=== PATIENT | male | born 1960 | race Caucasian/White ===

== ENCOUNTER 2018-10-22 20:08 | Inpatient (IN) | payer MEDICAID ==
[~2018-10-22] VITALS: Ht 172.7 cm; Wt 86.7 kg
--- NOTE | 2018-10-22 20:08 | NUR ---
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
--- NOTE | 2018-10-22 20:23 | NUR ---
BLOOD COLLECTED FROM PIV
[2018-10-22 20:39] LABS: BASOPHILS # (AUTO) 0.1 /CMM (0.0-0.2); BASOPHILS % (AUTO) 1.2 % (0.0-2.0); EOSINOPHILS % (AUTO) 0.9 % (0.0-6.0); HEMATOCRIT 39 % (39-51); HEMOGLOBIN 13.2 g/dL (13.5-17.5); LYMPHOCYTES # (AUTO) 2.2 /CMM (0.8-4.8); MEAN CORPUSCULAR HGB CONC 34 g/dl (31.0-36.0); MEAN CORPUSCULAR VOLUME 91 fL (80-96); MONOCYTES # (AUTO) 0.4 /CMM (0.1-1.30); MONOCYTES % (AUTO) 7.1 % (2.0-12.0); NEUTROPHILS # (AUTO) 3.5 /CMM (1.8-8.9); NEUTROPHILS % (AUTO) 55.8 % (43.0-81.0); PLATELET COUNT (AUTO) 348 /CMM (150-450); RED BLOOD CELL COUNT(AUTO) 4.32 MIL/uL (4.5-6.0); WHITE BLOOD COUNT (AUTO) 6.2 K/uL (4.3-11.0)
[2018-10-22 20:49] LABS: CALCIUM, SERUM 8.8 mg/dL (8.5-10.1); CREATININE 1.5 mg/dL (0.6-1.3); POTASSIUM 4.6 mmol/L (3.5-5.1)
--- NOTE | 2018-10-22 21:44 | NUR ---
Juan stoll in [facility] - 10/22/18 at 2145 by YEN BED [phone] MADHU WORLEY.
--- NOTE | 2018-10-22 21:58 | NUR ---
REPORT GIVEN TO LAMBERTO BROWN FOR JUAN J
[2018-10-22] MEDS ORDERED: MAGNESIUM HYDROXIDE 30 ML UDC PO PRN (22:00)
[2018-10-22] MEDS ORDERED: ACETAMINOPHEN 325 MG TABLET PO PRN (22:00)
[2018-10-22] MEDS ORDERED: MAG HYDROX/AL HYDROX/SIMETH 30 ML UDC PO PRN (22:00)
[2018-10-22] MEDS ORDERED: Z GUARD REMEDY 2 OZ OINT TP PRN (22:00)
[2018-10-22] MEDS ORDERED: ONDANSETRON HCL/PF 4 MG/2 ML VIAL IVP PRN (22:00)
[2018-10-22] MEDS ORDERED: IV NS 0.9% 1,000 ML IV SCH (22:00)
[2018-10-22] MEDS ORDERED: ZOLPIDEM TARTRATE 5 MG TABLET PO PRN (22:00)
[2018-10-22] MEDS ORDERED: HYDROCODONE/APAP 5/325MG 1 EACH TABLET PO PRN (22:00)
[2018-10-22 22:30] VITALS: BP 121/77
--- NOTE | 2018-10-22 22:30 | NUR ---
PT TRANSFERRED TO 3W/TELE VIA ACLS PROTOCOL
--- NOTE | 2018-10-22 22:35 | NUR ---
MODEL AND PATTERN SUPERVISORSSN/SSBN ASSISTANT NAVIGATOR NOTES Patient came to unit via gurney, alert, oriented x 3, able to make needs known. Breathing even and unlabored. Not in any distress. No complaints of pain as of this time. Tele monitor in place, sinus marta 51. IV access on LAC g#18 intact and patent. Patient denies smoking and recreational drug use, but drinks occasionally. Oriented to call bruce, placed within easy reach. Bed in low, locked position. Will continue to monitor accordingly
[2018-10-22] MEDS ORDERED: ARIP5TAB10 PO (23:50)
[2018-10-22] MEDS ORDERED: CLOP75TA15 PO (23:50)
[2018-10-22] MEDS ORDERED: ALPR2TAB2 PO (23:50)
[2018-10-22] MEDS ORDERED: HYDR-4354 PO (23:51)
[2018-10-23] VITALS: BP 131/85
--- NOTE | 2018-10-23 02:55 | NUR ---
MANIPULATOR OPERATOR NOTES Current tele reading- SB 40 as per technical support intern. Checked up on patient, patient asymptomatic. Patient able to answer questions and denies any pain or discomfort.
[2018-10-23 04:00] VITALS: BP 97/50
--- NOTE | 2018-10-23 06:35 | NUR ---
SOUP MIXER NOTES Called family member to follow up on patient's list of medications. No answer. Left a message
--- NOTE | 2018-10-23 06:40 | NUR ---
PREPRINT ANALYST CLOSING NOTES Patient still sleeping in bed, easily arousable. Breathing even and unlabored. Not in any distress. Peripheral IV infusing at 75mL/hr. Tele monitor in place, patient has been on sinus marta 48-51 but patient is asymptomatic- still able to communicate. No complaints as of this time. All needs attended to. Safety measures in place. Will endorse JUAN J to oncoming RN
[2018-10-23 06:58] LABS: EOSINOPHILS % (AUTO) 1.9 % (0.0-6.0); HEMATOCRIT 36 % (39-51); HEMOGLOBIN 12.4 g/dL (13.5-17.5); LYMPHOCYTES # (AUTO) 1.4 /CMM (0.8-4.8); MEAN CORPUSCULAR HGB CONC 35 g/dl (31.0-36.0); MEAN CORPUSCULAR VOLUME 89 fL (80-96); MONOCYTES # (AUTO) 0.4 /CMM (0.1-1.30); MONOCYTES % (AUTO) 7.9 % (2.0-12.0); NEUTROPHILS % (AUTO) 61.2 % (43.0-81.0); PLATELET COUNT (AUTO) 283 /CMM (150-450); RED BLOOD CELL COUNT(AUTO) 4.03 MIL/uL (4.5-6.0); WHITE BLOOD COUNT (AUTO) 4.9 K/uL (4.3-11.0)
[2018-10-23 07:00] LABS: CALCIUM, SERUM 8.5 mg/dL (8.5-10.1); CREATININE 1.2 mg/dL (0.6-1.3); PHOSPHORUS 4.4 mg/dL (2.5-4.9)
[2018-10-23 07:55] VITALS: BP 113/1
[2018-10-23 08:00] VITALS: BP 113/81
--- NOTE | 2018-10-23 08:00 | NUR ---
RN notes received patient in the bed sleeping. Patient Tele on SR-52, no acute respiratory distress, v/s stable. patient apous when called name or touched. Infusing NS at 75 ml/hr on left ac area intact. Call light within to reach, safety precaution maintained all the time.
[2018-10-23] MEDS ORDERED: IV NS 0.9% 1,000 ML IV PRN (08:34)
--- NOTE | 2018-10-23 08:43 | NUR ---
BUFFER NICKEL/MED RECON PATIENT UNABLE TO PROVIDE COMPLETE INFO RE: HIS HOME MEDICATION. CALLED RENAE WITH NO ANSWER AND UNABLE TO LEAVE A MSG.
--- NOTE | 2018-10-23 09:40 | NUR ---
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
--- NOTE | 2018-10-23 10:38 | NUR ---
rn notes Administered narco 5/325 mg po prn for left upper chest pain 5/10 per patient request, v/s taken bp-117/73, p-61, continued monitoring. also patient seen by Dr. Oleary. patient notes he wanted to go home. call light within to reach.
[2018-10-23 10:46] LABS: APPEARANCE,URINE CLEAR (CLEAR); BILIRUBIN,URINE NEGATIVE (NEGATIVE); BLOOD, URINE NEGATIVE Ery/uL (NEGATIVE); COLOR,URINE YELLOW (YELLOW); KETONES,URINE NEGATIVE (NEGATIVE); LEUKOCYTE ESTERASE ,URINE NEGATIVE (NEGATIVE); NITRITE, URINE NEGATIVE (NEGATIVE); PH,URINE 5.5 (5.0-8.0); PROTEIN,URINE NEGATIVE (NEGATIVE); UGLUCOSE NEGATIVE (NEGATIVE); UROBILINOGEN,URINE 0.2 EU/dL (0.2)
[2018-10-23] MEDS ORDERED: NITR0.4T48 SL (11:55)
[2018-10-23 12:00] VITALS: BP 116/73
[2018-10-23] MEDS ORDERED: HYDROCODONE/APAP 10/325MG 1 EA TABLET PO PRN (12:00)
[2018-10-23] MEDS ORDERED: ARIPIPRAZOLE 5 MG TABLET PO SCH (12:00)
[2018-10-23] MEDS ORDERED: CLOPIDOGREL BISULFATE 75 MG TABLET PO SCH (12:00)
--- NOTE | 2018-10-23 12:30 | NUR ---
RN notes Administered Xanax 2 mg po prn for anxiety per patient request, v/s taken bp 120/76, p- 71, continued monitoring.
[2018-10-23] MEDS ORDERED: ALPRAZOLAM 1 MG TABLET PO PRN (13:00)
--- NOTE | 2018-10-23 13:30 | NUR ---
rn notes patient going to d[facility] back [facility], case management aware of.
--- NOTE | 2018-10-23 13:36 | NUR ---
RN notes Per mother helper Dr. Asher d/c tele to [facility].
--- NOTE | 2018-10-23 15:50 | NUR ---
Discharge Notes Patient discharge back to [facility]. Patient stable, v/s stable, refused pain at this time. Med reconciliation, and discharge order reviewed and explained to patient. Patient verbalized understanding. Belonging with the patient. Patient noted he has medication at home, and does not need new prescription. Patient will follow primary Md. and take medication. Patient refused to take a bus to [facility]. 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, phone # [phone].
== END 2018-10-23 15:10 | disposition home or self-care (01) | DRG 198 ==
LOC: EDSEX 20:12 → EDBD 20:12 → ER 20:12 → TELE 21:51 → MED 10-23 13:39
PROVIDERS: ADMIT Family Medicine
DX: I25.119 Atherosclerotic heart disease of native coronary artery with unspecified angina pectoris (principal); N17.0 Acute kidney failure with tubular necrosis; Z95.1 Presence of aortocoronary bypass graft; F39 Unspecified mood [affective] disorder; D63.8 Anemia in other chronic diseases classified elsewhere; I12.9 Hypertensive chronic kidney disease with stage 1 through stage 4 chronic kidney disease, or unspecified chronic kidney disease; N18.9 Chronic kidney disease, unspecified
CPT/HCPCS: 36415; 71045-TC; 80048-TC; 80061-TC; 80305; 81000-TC; 83735-TC; 84100-TC; 84484-TC; 85025-TC; 87081-TC; 93307-TC; G0378; J7030